=== PATIENT | male | born 1965 | race Caucasian/White ===

== ENCOUNTER 2016-11-24 11:00 | Day surgery (SDC) | payer OTHER ==
[2016-11-24] MEDS ORDERED: ceFAZolin 2 GM/50 ML 50 ML IV ONE (11:23)
[2016-11-24] MEDS ORDERED: LACTATED RINGERS 1,000 ML IV ONE ×3 (11:44→16:10)
[2016-11-24] MEDS ORDERED: SUCCINYLCHOLINE 200 MG/10 ML VIAL IVP ONE (12:44)
[2016-11-24] MEDS ORDERED: MIDAZOLAM 2 MG/2 ML VIAL IVP ONE (12:44)
[2016-11-24] MEDS ORDERED: LIDOCAINE-MPF 2% 5 ML VIAL IM ONE (12:44)
[2016-11-24] MEDS ORDERED: PROPOFOL 200 MG/20 ML VIAL IVP ONE (12:44)
[2016-11-24] MEDS ORDERED: HYDROmorphone 1 MG/ML SYRINGE IVP ONE (12:44)
[2016-11-24] MEDS ORDERED: GLYCOPYRROLATE 1 MG/5 ML VIAL IVP ONE (12:44)
[2016-11-24] MEDS ORDERED: DEXAMETHASONE 4 MG/ML VIAL IVP ONE (12:44)
[2016-11-24] MEDS ORDERED: KETOROLAC 30 MG/ML VIAL IVP ONE (12:44)
[2016-11-24] MEDS ORDERED: ROCURONIUM 50 MG/5 ML VIAL IVP ONE (12:44)
[2016-11-24] MEDS ORDERED: NEOSTIGMINE 1 MG/1 ML 10 ML MDV IVP ONE (12:44)
[2016-11-24] MEDS ORDERED: BUPIVACAINE 0.5% PF 30 ML VIAL SUBQ ONE ×2 (13:23)
[2016-11-24] MEDS: HYDROmorphone 1 MG/ML SYRINGE ONE ×4 (14:58→15:19)
[2016-11-24] MEDS ORDERED: HYDROmorphone 1 MG/ML SYRINGE ONE (15:25)
[2016-11-24] MEDS ORDERED: ACETAMINOPHEN 1,000 MG/100 ML 100 ML IV ONE (15:33)
[2016-11-24] MEDS ORDERED: oxyCOD/ACETAMIN 5 MG/325 MG TABLET PO ONE ×2 (15:47→16:23)
== END 2016-11-24 11:01 | disposition home or self-care (01) ==
PROC: 0WUF0JZ Supplement Abdominal Wall with Synthetic Substitute, Open Approach (ICD-10-PCS; principal; 2016-11-24 12:15)
DX: K43.2 Incisional hernia without obstruction or gangrene (principal)
CPT/HCPCS: 49560; 49568; A9270; C1781; J0131; J0690; J1170; J7120

== ENCOUNTER 2016-11-26 20:36 | Observation (INO) | payer OTHER ==
[2016-11-26] MEDS ORDERED: KETOROLAC 60 MG/2 ML VIAL IM STA (21:07)
[2016-11-26] MEDS ORDERED: KETOROLAC 60 MG/2 ML VIAL ONE (21:17)
[2016-11-26] MEDS ORDERED: KETOROLAC 30 MG/ML VIAL ONE (21:52)
[2016-11-26] MEDS ORDERED: SODIUM CHLORIDE FLUSH 0.9% 10 ML SYRINGE IVP PRN (22:48)
[2016-11-26] MEDS ORDERED: ONDANSETRON 4 MG/2 ML VIAL IVP PRN (22:48)
[2016-11-27] MEDS: NS W/20 MEQ KCL 1,000 ML IV SCH ×3 (00:28→16:46)
[2016-11-27] MEDS: SODIUM CHLORIDE FLUSH 0.9% 10 ML SYRINGE IVP SCH ×3 (06:50→21:51)
[2016-11-27] MEDS: HYDROmorphone 1 MG/ML SYRINGE IVP PRN ×3 (06:50→21:50)
[2016-11-27] MEDS: PANTOPRAZOLE 40 MG VIAL IVP SCH (06:50)
[2016-11-27] MEDS ORDERED: SALINE ENEMA 133 ML BOTTLE RC SCH (08:00)
[2016-11-28] MEDS: NS W/20 MEQ KCL 1,000 ML IV SCH ×2 (00:32→09:07)
[2016-11-28] MEDS: HYDROmorphone 1 MG/ML SYRINGE IVP PRN (04:37)
[2016-11-28] MEDS: SODIUM CHLORIDE FLUSH 0.9% 10 ML SYRINGE IVP SCH (06:01)
[2016-11-28] MEDS: PANTOPRAZOLE 40 MG VIAL IVP SCH (06:01)
== END 2016-11-28 11:30 | disposition home or self-care (01) ==
DX: K91.3 Postprocedural intestinal obstruction (principal); Y83.8 Other surgical procedures as the cause of abnormal reaction of the patient, or of later complication, without mention of misadventure at the time of the procedure; Y92.234 Operating room of hospital as the place of occurrence of the external cause; G89.29 Other chronic pain; M54.9 Dorsalgia, unspecified; H54.7 Unspecified visual loss; Z87.442 Personal history of urinary calculi; Z79.899 Other long term (current) drug therapy
CPT/HCPCS: 36415; 74022; 80053; 83690; 83735; 84100; 85025; 96374; 96375; 96376; 99283; 99285; A9270; G0378; J1170

== ENCOUNTER 2016-11-28 23:55 | Inpatient (IN) | payer OTHER ==
[2016-11-29] MEDS ORDERED: ONDANSETRON ODT 4 MG TABLET TL STA (01:10)
[2016-11-29] MEDS ORDERED: ONDANSETRON ODT 4 MG TABLET ONE (01:11)
[2016-11-29] MEDS: HYDROmorphone 1 MG/ML SYRINGE IVP PRN ×4 (03:23→19:10)
[2016-11-29] MEDS: D5.45NS W/20 MEQ KCL 1,000 ML IV SCH ×3 (03:24→19:14)
[2016-11-29] MEDS: SODIUM CHLORIDE FLUSH 0.9% 10 ML SYRINGE IVP SCH ×3 (03:26→21:11)
[2016-11-29] MEDS: ONDANSETRON 4 MG/2 ML VIAL IVP PRN ×3 (03:30→19:07)
[2016-11-29] MEDS: SODIUM CHLORIDE FLUSH 0.9% 10 ML SYRINGE IVP PRN ×2 (12:45→12:48)
[2016-11-29] MEDS ORDERED: SALINE ENEMA 133 ML BOTTLE RC SCH (19:00)
[2016-11-30] MEDS: ONDANSETRON 4 MG/2 ML VIAL IVP PRN ×2 (02:21→13:30)
[2016-11-30] MEDS: D5.45NS W/20 MEQ KCL 1,000 ML IV SCH ×3 (02:31→18:20)
[2016-11-30] MEDS: SODIUM CHLORIDE FLUSH 0.9% 10 ML SYRINGE IVP SCH ×3 (05:38→21:13)
[2016-11-30] MEDS ORDERED: PROCHLORPERAZINE 10 MG/2 ML VIAL IVP PRN (07:29)
[2016-11-30] MEDS: SODIUM CHLORIDE FLUSH 0.9% 10 ML SYRINGE IVP PRN (07:35)
[2016-11-30] MEDS: ceFAZolin 1 GM in SODIUM CHLORIDE 0.9% MINIBAG 100 ML IV SCH (18:20)
[2016-12-01] MEDS: ceFAZolin 1 GM in SODIUM CHLORIDE 0.9% MINIBAG 100 ML IV SCH ×3 (01:16→16:13)
[2016-12-01] MEDS: D5.45NS W/20 MEQ KCL 1,000 ML IV SCH ×2 (02:54→10:54)
[2016-12-01] MEDS: SODIUM CHLORIDE FLUSH 0.9% 10 ML SYRINGE IVP SCH ×3 (05:37→22:28)
[2016-12-01] MEDS: SODIUM CHLORIDE FLUSH 0.9% 10 ML SYRINGE IVP PRN (06:02)
[2016-12-01] MEDS: ONDANSETRON 4 MG/2 ML VIAL IVP PRN (06:02)
[2016-12-02] MEDS: D5.45NS W/20 MEQ KCL 1,000 ML IV SCH ×2 (00:51→09:35)
[2016-12-02] MEDS: ceFAZolin 1 GM in SODIUM CHLORIDE 0.9% MINIBAG 100 ML IV SCH ×3 (00:51→17:48)
[2016-12-02] MEDS: SODIUM CHLORIDE FLUSH 0.9% 10 ML SYRINGE IVP SCH ×3 (05:02→22:21)
[2016-12-03] MEDS: ceFAZolin 1 GM in SODIUM CHLORIDE 0.9% MINIBAG 100 ML IV SCH ×2 (00:50→08:08)
[2016-12-03] MEDS: D5.45NS W/20 MEQ KCL 1,000 ML IV SCH (03:55)
[2016-12-03] MEDS: SODIUM CHLORIDE FLUSH 0.9% 10 ML SYRINGE IVP SCH ×2 (05:56→14:25)
== END 2016-12-03 14:15 | disposition home or self-care (01) | DRG 395 ==
DX: K91.3 Postprocedural intestinal obstruction (principal); Y83.8 Other surgical procedures as the cause of abnormal reaction of the patient, or of later complication, without mention of misadventure at the time of the procedure; Y92.234 Operating room of hospital as the place of occurrence of the external cause; Z48.01 Encounter for change or removal of surgical wound dressing

== ENCOUNTER 2017-08-31 13:04 | Outpatient (CLI) | payer OTHER | END 2017-08-31 13:05 | disposition home or self-care (01) | LOC: SC 13:04 | PROVIDERS: ATTEND Internal Medicine Pulmonary Disease | DX: G47.30 Sleep apnea, unspecified (principal); G47.10 Hypersomnia, unspecified; R06.83 Snoring; R51 Headache | CPT/HCPCS: 99203; 99212 ==

== ENCOUNTER 2017-12-13 14:12 | Outpatient (CLI) | payer OTHER | END 2017-12-13 14:13 | disposition home or self-care (01) | LOC: SC 14:12 | PROVIDERS: ATTEND Nurse Practitioner Family | DX: G47.33 Obstructive sleep apnea (adult) (pediatric) (principal) | CPT/HCPCS: 99212; 99214 ==

== ENCOUNTER 2019-11-20 14:48 | Emergency (ER) | payer OTHER ==
[2019-11-20] MEDS ORDERED: SULFAMETH/TRIMETH DS 800/160 MG TABLET PO STA (18:12)
[2019-11-20] MEDS ORDERED: cephALEXin 250 MG CAPSULE PO STA (18:12)
--- NOTE | 2019-11-20 18:15 | ED Physician Documentation ---
PD HPI SKIN - Stated complaint Stated Complaint: RT CALF PX / SWELLING - Chief complaint Chief Complaint: Wound - History obtained from History obtained from: Patient - History of Present Illness Timing - onset: Yesterday - Additional information Additional information: Patient comes emergency department complaining of redness, swelling, and pain of his right calf after getting a tattoo a couple of days ago. Patient states that yesterday he noticed his calf was sore, but he thought that it was just sore from getting the tattoo. However, today he noticed that it was larger and the skin was red. He also noticed that the redness and pain had traveled up behind his knee. Patient denies fevers or chills. He does not otherwise feel ill. He is not a diabetic. No history of DVT. He denies any pain or swelling prior to getting his tattoo placed. No other complaints at this time. Review of Systems Ten Systems: 10 systems reviewed and negative Constitutional: reports: Reviewed and negative Eyes: reports: Reviewed and negative Ears: reports: Reviewed and negative Nose: reports: Reviewed and negative Throat: reports: Reviewed and negative Cardiac: reports: Reviewed and negative Respiratory: reports: Reviewed and negative GI: reports: Reviewed and negative : reports: Reviewed and negative Skin: reports: Other (Erythema, pain, swelling right lower extremity) Musculoskeletal: reports: Reviewed and negative Neurologic: reports: Reviewed and negative Psychiatric: reports: Reviewed and negative Endocrine: reports: Reviewed and negative Immunocompromised: reports: Reviewed and negative PD PAST MEDICAL HISTORY - Past Medical History Past Medical History: Yes Cardiovascular: None Respiratory: None Endocrine/Autoimmune: None GI: None : Kidney stones HEENT: Chronic vision loss Psych: None Musculoskeletal: Chronic back pain Derm: None - Past Surgical History Past Surgical History: Yes General: Appendectomy, 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 - Present Medications Home Medications: Ambulatory Orders Medication Instructions Recorded Confirmed Vardenafil HCl [Levitra] 20 mg PO PRN PRN 11/29/16 11/29/16 Cephalexin [Keflex] 500 mg PO TID #30 capsule 12/03/16 Cephalexin [Keflex] 500 mg PO QID 7 Days #28 capsule 11/20/19 Sulfamethox/Trimeth 800/160 1 each PO BID #14 tablet 11/20/19 [Bactrim Ds 800/160] - Allergies Allergies/Adverse Reactions: Allergies Allergy/AdvReac Type Severity Reaction Status Date / Time No Known Drug Allergies Allergy Verified 11/29/16 00:03 - Social History Does the pt smoke?: No Smoking Status: Never smoker Does the pt drink ETOH?: Yes Does the pt have substance abuse?: No - Immunizations Immunizations are current?: Yes - POLST Patient has POLST: No PD ED PE NORMAL - Vitals Vital signs reviewed: Yes - General General: Alert and oriented X 3, No acute distress - HEENT HEENT: PERRL - Neck Neck: Supple, no meningeal sign - Respiratory Respiratory: No respiratory distress - Derm Derm: Warm and dry, Other (Patient has erythema and tenderness of his posterior calf cough surrounding a fresh appearing tattoo. Erythema extends up to the popliteal region. No induration is noted. No fluctuance. No drainage or wounds. No cords.) - Extremities Extremities: No deformity, Other (See description of skin changes under "Derm" exam. Patient has tenderness overThe soft tissues of his right calf extending to the popliteal area.) - Neuro Neuro: Alert and oriented X 3 - Psych Psych: Normal mood, Normal affect Results - Vitals Vitals: Vital Signs - 24 hr 11/20/19 11/20/19 15:25 18:20 Temperature 37 C 37 C Heart Rate 81 75 Respiratory 18 12 Rate Blood Pressure 145/92 H 145/83 H O2 Saturation 97 98 Oxygen O2 Source Room air PD MEDICAL DECISION MAKING - ED course Complexity details: reviewed old records, considered differential, d/w patient ED course: Patient was started on Keflex and Bactrim in the emergency department for what appeared to be a cellulitis. I felt it was unlikely that the patient's symptoms were secondary to DVT and I also did not find evidence of an abscess at this time. We have discussed home management of the symptoms and the need to take the antibiotics directed. We have also discussed the usual indications for return. Departure - Departure Disposition: 01 Home, Self Care Clinical Impression: Cellulitis Qualifiers: Site of cellulitis: extremity Site of cellulitis of extremity: lower extremity Laterality: right Qualified Code(s): L03.115 - Cellulitis of right lower limb Condition: Fair Instructions: ED Infec Skin Cellulitis Prescriptions: Cephalexin [Keflex] 500 mg PO QID 7 Days #28 capsule Sulfamethox/Trimeth 800/160 [Bactrim Ds 800/160] 1 each PO BID #14 tablet Comments: Please take both sets of antibiotics, as directed.If you still are noticing that the symptoms are worsening after couple of days, you will need to come back and be reevaluated.You may also use ice and elevation to help the swelling and pain. Discharge Date/Time: 11/20/19 18:21
[2019-11-20 18:21] VITALS: BP 145/83
== END 2019-11-20 18:21 | disposition home or self-care (01) ==
LOC: ED 14:48
DX: L03.115 Cellulitis of right lower limb (principal)
CPT/HCPCS: 99282; 99284; A9270

== ENCOUNTER 2020-01-05 16:11 | Emergency (ER) | payer OTHER ==
--- NOTE | 2020-01-05 16:30 | ED Physician Documentation ---
PD HPI LOWER EXT INJURY - Stated complaint Stated Complaint: RT LEG PX - Chief complaint Chief Complaint: Ext Problem - History obtained from History obtained from: Patient - History of Present Illness PD HPI LOW EXT INJURY LOCATION: Right, Calf (lateral aspect) Type of injury: Other (no noted particular injury. Started with lateral right calf pain that has increased and is now also hurting right popliteal area. No foot swelling. No noted weakness/numbness. No back pain.). No: Fall, Twist Timing - onset: How many weeks ago (1) Timing - duration: Weeks (1) Timing - details: Gradual onset, Still present Worsened by: Moving (standing and walking hurts more), Palpating Associated symptoms: No: Weakness, Numbness, Swelling Contributing factors: Other ([facility]- timeframe, and improved with PO abx. Did not have pain there after and without redness/swelling there this week.). No: Anticoagulated, Prior ortho surgery Review of Systems Constitutional: denies: Fever, Chills, Myalgias Nose: denies: Rhinorrhea / runny nose, Congestion Throat: denies: Sore throat Cardiac: denies: Chest pain / pressure Respiratory: denies: Dyspnea, Cough Skin: denies: Rash, Lesions Neurologic: denies: Focal weakness, Numbness PD PAST MEDICAL HISTORY - Past Medical History Cardiovascular: None Respiratory: None Endocrine/Autoimmune: None GI: None : Kidney stones HEENT: Chronic vision loss Psych: None Musculoskeletal: Chronic back pain Derm: None - Past Surgical History Past Surgical History: Yes General: Appendectomy, Bowel surgery /CONTRACT NEGOTIATION SPECIALIST: Other - Present Medications Home Medications: Ambulatory Orders Medication Instructions Recorded Confirmed Vardenafil HCl [Levitra] 20 mg PO PRN PRN 11/29/16 11/29/16 Cephalexin [Keflex] 500 mg PO TID #30 capsule 12/03/16 Cephalexin [Keflex] 500 mg PO QID 7 Days #28 capsule 11/20/19 Sulfamethox/Trimeth 800/160 1 each PO BID #14 tablet 11/20/19 [Bactrim Ds 800/160] Hydrocodone/Acetaminophen [[place] 1 each PO Q6H PRN #15 tablet 01/05/20 5-325 Tablet] Naproxen 375 mg PO BID #20 tablet 04/10/20 Tizanidine HCl 4 mg PO TID PRN #25 capsule 01/05/20 - Allergies Allergies/Adverse Reactions: Allergies Allergy/AdvReac Type Severity Reaction Status Date / Time No Known Drug Allergies Allergy Verified 01/05/20 16:18 - Social History Does the pt smoke?: No Smoking Status: Never smoker Does the pt drink ETOH?: Yes Does the pt have substance abuse?: No - Immunizations Immunizations are current?: Yes - POLST Patient has POLST: No PD ED PE NORMAL - Vitals Vital signs reviewed: Yes - General General: Alert and oriented X 3, No acute distress, Well developed/nourished - Cardiac Cardiac: RRR, No murmur - Respiratory Respiratory: Clear bilaterally - Abdomen Abdomen: Soft, Non tender - Back Back: No spinal TTP - Derm Derm: Normal color, Warm and dry, No rash - Extremities Extremities: No edema, Other (He has tenderness over the lateral aspect of the right mid calf to the proximal calf and some in the popliteal area. There is no obvious rash redness or swelling. Sensation in the foot and toes is normal as is movement. The medial aspect of the calf is not tender.) Results - Vitals Vitals: Vital Signs - 24 hr 01/05/20 01/05/20 01/05/20 16:18 16:20 18:20 Temperature 36.7 C 36.6 C 36.6 C Heart Rate 77 72 70 Respiratory 17 16 16 Rate Blood Pressure 159/83 H 120/65 122/65 O2 Saturation 99 100 100 Oxygen O2 Source Room air - Labs Labs: Laboratory Tests 01/05/20 01/05/20 17:48 17:48 WBC 6.4 RBC 5.49 Hgb 16.0 Hct 47.0 MCV 85.6 MCH 29.1 MCHC 34.0 RDW 13.3 Plt Count 193 MPV 10.1 Neut # (Auto) 3.4 Lymph # (Auto) 2.4 [place] # (Auto) 0.5 Eos # (Auto) 0.1 Baso # (Auto) 0.0 Absolute Nucleated RBC 0.00 Nucleated RBC % 0.0 Sodium 137 Potassium 3.7 Chloride 102 Carbon Dioxide 28 Anion Gap 7.0 BUN 19 Creatinine 0.9 Estimated GFR (MDRD) 89 Glucose 97 Calcium 9.2 Total Creatine Kinase 119 C-Reactive Protein < 1.0 - Rads (name of study) right leg duplex Radiology: Prelim report reviewed (no DVT), See rad report PD MEDICAL DECISION MAKING - ED course Complexity details: reviewed results, considered differential (He has pain in the lateral calf. There is no injury to it. It does not feel tight. It is not exertional. It does not seem compartment like. There is no signs of skin lesions. We can check an ultrasound for DVT. He had had cellulitis over at tattoo there a month and a half ago but that healed well. No signs of recurrent infection. Can check CK and CRP for possibility of a deeper muscle infection though would be unlikely 5 or 6 weeks later.), d/w patient Departure - Departure Disposition: 01 Home, Self Care Clinical Impression: Right calf pain Clinical Impression: (Ruled Out): Deep vein thrombosis Condition: Stable Record reviewed to determine appropriate education?: Yes Instructions: ED Muscle Pain Leg Cramps Follow-Up: Matt Gutierres MD [Primary Care Provider] - Prescriptions: Hydrocodone/Acetaminophen [[place] 5-325 Tablet] 1 each PO Q6H PRN #15 tablet PRN Reason: Pain Naproxen 375 mg PO BID #20 tablet Tizanidine HCl 4 mg PO TID PRN #25 capsule PRN Reason: Spasms Comments: Your ultrasound did not show any signs of blood clots. Your blood test did not suggest any sign of muscle breakdown or localized infection or inflammatory process per se. Presume a muscle strain or such. Use some muscle relaxants and anti-inflammatories. Heat and gentle stretching of the area. Add Tylenol if needed. Recheck if not improved over the next several days to a week. Recheck sooner if other symptoms develop such as rash or back pain, numbness or weakness or other concerns.
[2020-01-05] MEDS ORDERED: ACETAMINOPHEN 325 MG TABLET PO STA (17:05)
[2020-01-05 17:55] LABS: BASOPHILS % (AUTO) 0.3 %; EOSINOPHILS # (AUTO) 0.1 10^3/uL (0.0-0.7); EOSINOPHILS % (AUTO) 1.6 %; LYMPHOCYTES # (AUTO) 2.4 10^3/uL (1.5-3.5); LYMPHOCYTES % (AUTO) 37.1 %; MEAN CORPUSCULAR HEMOGLOBIN 29.1 pg (27.0-31.0); MEAN CORPUSCULAR VOLUME 85.6 fL (80.0-94.0); MEAN PLATELET VOLUME 10.1 fL (7.4-11.4); MONOCYTES # (AUTO) 0.5 10^3/uL (0.0-1.0); MONOCYTES % (AUTO) 7.7 %; NEUTROPHILS # (AUTO) 3.4 10^3/uL (1.5-6.6); PLT - PLATELET COUNT 193 10^3/uL (130-450); RED BLOOD COUNT 5.49 10^6/uL (4.70-6.10); RED CELL DISTRIBUTION WIDTH 13.3 % (12.0-15.0); WHITE BLOOD COUNT 6.4 x10^3/uL (4.8-10.8)
[2020-01-05 18:17] LABS: BUN - BLOOD UREA NITROGEN 19 mg/dL (6-20); CALCIUM 9.2 mg/dL (8.5-10.3); CARBON DIOXIDE - CO2 28 mmol/L (21-32); CHLORIDE 102 mmol/L (101-111); CK- CREATINE KINASE 119 IU/L (22-269); CREATININE 0.9 mg/dL (0.6-1.2); GLUCOSE 97 mg/dL (70-100); SODIUM 137 mmol/L (135-145)
[2020-01-05 18:23] LABS: CRP - C-REACTIVE PROTEIN < 1.0 mg/dL (0-1.0)
--- NOTE | 2020-01-05 18:52 | Ultrasound Report ---
Reason: right calf pain and some swelling; no injury Procedure Date: 01/05/2020 Accession Number: [id number] / [id number] Procedure: US - Duplex Ext Veins Right CPT Code: Final Report FULL RESULT: EXAM: RIGHT LOWER EXTREMITY VENOUS ULTRASOUND EXAM DATE: 01/05/2020 06:35 PM. CLINICAL HISTORY: Right calf pain and some swelling; no injury. COMPARISON: None. TECHNIQUE: Real-time sonographic vascular imaging was performed by the md ophthalmologist through the lower extremity utilizing both color-flow and Doppler spectral analysis. Multiple outside energy sales representatives static images were saved for review. FINDINGS: Common Femoral Vein (CFV): Normal. CFV-GSV Junction: Normal. Profunda Femoral Vein (PFV): Normal. Femoral Vein (FV) Prox: Normal. Femoral Vein (FV) Mid: Normal. Femoral Vein (FV) Dist: Normal. Popliteal Vein: Normal. Posterior Tibial Veins: Normal. Peroneal Veins: Normal. Contralateral Side CFV: Normal. Other: None. IMPRESSION: No evidence for deep venous thrombosis. RADIA
[2020-01-05 19:10] VITALS: BP 125/65
== END 2020-01-05 19:10 | disposition home or self-care (01) ==
LOC: ED 16:11
DX: M79.661 Pain in right lower leg (principal)
CPT/HCPCS: 36415; 80048; 82550; 85025; 86140; 93971; 99284; A9270

== ENCOUNTER 2021-04-24 16:49 | Outpatient (CLI) | payer BC, OTHER | END 2021-04-24 16:50 | disposition home or self-care (01) | LOC: COV 16:49 | PROVIDERS: ATTEND Surgery | DX: Z01.812 Encounter for preprocedural laboratory examination (principal); K43.2 Incisional hernia without obstruction or gangrene; Z20.822 Contact with and (suspected) exposure to COVID-19 ==

== ENCOUNTER 2021-04-28 08:48 | Day surgery (SDC) | payer OTHER ==
[~2021-04-28 08:48] MED LIST: ceFAZolin 2 GM/50 ML 2 GM/50 ML BAG IV ONE
[2021-04-28] MEDS ORDERED: ONDANSETRON 4 MG/2 ML VIAL IVP ONE (08:49)
[2021-04-28] MEDS ORDERED: PROPOFOL 200 MG/20 ML VIAL IVP ONE (08:49)
[2021-04-28] MEDS ORDERED: KETOROLAC 30 MG/ML VIAL IVP ONE (08:49)
[2021-04-28] MEDS ORDERED: LIDOCAINE-MPF 2% 5 ML VIAL TD ONE (08:49)
[2021-04-28] MEDS ORDERED: fentaNYL 100 MCG/2 ML VIAL IVP ONE (08:49)
[2021-04-28] MEDS ORDERED: GLYCOPYRROLATE 1 MG/5 ML VIAL IVP ONE (08:49)
[2021-04-28] MEDS ORDERED: ROCURONIUM 50 MG/5 ML VIAL IVP ONE (08:49)
[2021-04-28] MEDS ORDERED: NEOSTIGMINE 1 MG/1 ML 10 ML MDV IVP ONE (08:49)
[2021-04-28] MEDS ORDERED: DEXAMETHASONE 4 MG/ML VIAL IVP ONE (08:49)
[2021-04-28] MEDS ORDERED: MIDAZOLAM 2 MG/2 ML VIAL IVP ONE (08:49)
[2021-04-28] MEDS ORDERED: LACTATED RINGERS 1,000 ML IV ONE ×2 (09:43→12:32)
[2021-04-28] MEDS ORDERED: ATROPINE ABBOJECT 1 MG/10 ML SYRINGE IVP PRN (10:03)
[2021-04-28] MEDS ORDERED: fentaNYL 100 MCG/2 ML VIAL IVP PRN (10:03)
[2021-04-28] MEDS ORDERED: ePHEDrine 50 MG/ML VIAL IVP PRN (10:03)
[2021-04-28] MEDS ORDERED: HYDROmorphone 0.5 MG/0.5 ML SYRINGE IVP PRN ×2 (10:03→12:35)
[2021-04-28] MEDS ORDERED: NALOXONE 0.4 MG/ML VIAL IVP PRN (10:03)
[2021-04-28] MEDS ORDERED: METOCLOPRAMIDE 10 MG/2 ML VIAL IVP PRN (10:03)
[2021-04-28] MEDS ORDERED: MORPHINE 2 MG/ML CARPUJECT IVP PRN (10:03)
[2021-04-28] MEDS ORDERED: ONDANSETRON 4 MG/2 ML VIAL IVP PRN ×2 (10:03→12:35)
--- NOTE | 2021-04-28 10:03 | ANESTHESIA ---
Pre-Anesthesia VS, & Labs - Diagnosis recurrent incisional hernia - Procedure recurrent incisional hernia repair Vital Signs: Temp Pulse Resp BP Pulse Ox 36 C L 66 20 121/90 H 100 04/28/21 09:00 04/28/21 09:00 04/28/21 09:00 04/28/21 09:00 04/28/21 09:00 Height: 5 ft 10 in Weight (kg): 109 kg Body Mass Index: 34.4 BMI Classification: Obese - NPO >8 hours Last Fluid Intake: sips 0800 h20 Home Medications and Allergies Home Medications: Ambulatory Orders No Known Home Medications 04/21/21 No Known Home Medications 04/21/21 Allergies/Adverse Reactions: Allergies Allergy/AdvReac Type Severity Reaction Status Date / Time No Known Drug Allergies Allergy Verified 01/05/20 16:18 Anes History & Medical History - Anesthetic History Anesthesia Complications: reports: No previous complications Family history of Anesthesia Complications: Denies Family history of Malignant Hyperthermia: Denies - Medical History Cardiovascular: reports: None Pulmonary: reports: None Gastrointestinal: reports: None Urinary: reports: None Musculoskeletal: reports: None Endocrine/Autoimmune: reports: None Blood Disorders: reports: None Skin: reports: Eczema Smoking Status: Never smoker - Surgical History General: reports: Appendectomy, Bowel surgery Gynecologic: Exam General: Alert, Oriented x3, Cooperative Dental: WNL Mouth Openin Fingerbreadth Neck Mobility: Normal Mallampati classification: II Thyromental Distance: 4-6 cm Respiratory: Lungs clear, Normal breath sounds, No respiratory distress Cardiovascular: Regular rate Neurological: Normal speech Mental/Cognitive Status: Alert/Oriented X3, Normal for patient Cognitive Status: Within normal limits Plan Anesthesia Type: General Consent for Procedure(s) Verified and Reviewed: Yes Code Status: Attempt Resuscitation ASA classification: 1-Healthy patient Is this case an emergency?: No
[2021-04-28] MEDS ORDERED: BUPIVACAINE 0.5% PF 30 ML VIAL ONE (10:04)
[2021-04-28] MEDS ORDERED: BUPIVACAINE 0.5% PF 30 ML VIAL INFIL ONE (10:11)
[2021-04-28] MEDS ORDERED: LACTATED RINGERS 1,000 ML IV SCH (11:00)
--- NOTE | 2021-04-28 12:27 | OPERATIVE REPORT ---
Operative Report - General Procedure Date: 04/28/21 Planned Procedure: Recurrent incisional herniorrhaphy Pre-Op Diagnosis: Recurrent incisional hernia Procedure Performed: Recurrent incisional herniorrhaphy with mesh Explantation of old mesh Post Op Diagnosis: Recurrent incisional hernia - Procedure Note Primary Surgeon: Juan Penny MD Anesthesia Provider: Jennifer Castro CRNA Anesthesia Technique: General ET tube, Local (30 mL of half percent Marcaine) IV Fluids (mL): 1,000 Estimated Blood Loss (mL): 10 Drain/Tube Type: Other (None.) Indications: Same as above. Findings: In the left upper aspect of the wound the mesh had folded back onto itself creating the recurrent hernia. Complications: None. - Other Other Information/Narrative: After verbal and written informed consent was obtained detailing the operation, the alternatives the operation including no operation, risks of infection, bleeding requiring transfusion with its risks, nerve injury, and and after I met with the patient confirming the surgery and the site of surgery, the patient was brought to the operative suite and placed supine on the operating table. Great care was taken to avoid pressure points to prevent pressure necrosis or nerve injury. Monitoring devices were applied along with TEDs and pneumatic compression stockings (to prevent DVT). The patient received preoperative antibiotics for surgical prophylaxis. (Anesthesiologist) sedated and anesthetized the patient for the entire procedure. The patient was prepped and draped in the usual sterile manner. With the patient draped my initials were clearly visible. A "time in" then confirmed that the patient was identified with 3 identifiers (name, date, and medical record number), the history and physical was updated and in the chart, the signed consent confirming the procedure was in the chart, the patient was in the correct position, the aforementioned prophylactic measures were in place or given, we had the correct personnel and equipment to complete the procedure and that anesthesia and the surgical team were given an opportunity to express any concerns. With the agreement of everyone in the room we proceeded with the operation. A midline skin incision was made tracing the previous incision and proceeding approximately 2 cm above this incision. Dissection down to the hernia sac was completed using Bovie electrocautery. The hernia sac was entered using Metzenbaum scissors without incident. This was dissected back to the fascial defect. What was apparent was that three fourths of the mesh was well incorporated however between the 12 and 3 o'clock position (left upper aspect on the patient right upper aspect as you are looking at him) the mesh had folded back onto itself creating the hernia defect. The mesh was densely adherent and could not be unfolded. As such, I decided to remove the old mesh and replace it. The removal of the mesh was done using a combination of Bovie electrocautery, blunt dissection, and Metzenbaum scissors. The old mesh was excised in its entirety and I decided not to send it to pathology for evaluation. A Ventrio ST hernia patch from [employer] (reference #[id number], lot # [id number], use by date 2022-07-24) was obtained and placed into the abdomen and sewn circumferentially in place to the fascia using "U" sutures of 0 PDS. There was significant overlap of the mesh with the hernia defect. The sutures were placed at the 12, 3, 6, and 9:00 positions. Sutures were then placed between these and digital examination revealed that there was no area between the sutures where I felt that omentum or abdominal contents could come through. The subcutaneous tissues were approximated in 2 layers using 0 PDS for the deeper layer in interrupted fashion and 3-0 Vicryl in a running fashion more superficially. The skin was closed using skin love and some Dermabond. At this point a timeout was performed that confirmed that all counts were correct x2, the procedure that was performed, the blood loss, the IV fluids administered, the patient's condition, and any concerns of the operating team had. Having tolerated the procedure well, the patient was taken recovery room in good and stable condition. The plan is for outpatient discharge when the patient is adequately recovered. This document was created in part using voice recognition technology. Because of the inherent limitations of the system, occasional same sounding word substitutions and grammatical errors do occur and persist despite proofreading. Please read this document for content.
[2021-04-28] MEDS ORDERED: HYDROcod/ACETAM 5/325 MG TABLET PO PRN (12:35)
[2021-04-28] MEDS ORDERED: fentaNYL 100 MCG/2 ML VIAL ONE (12:59)
[2021-04-28] MEDS ORDERED: HYDROcod/ACETAM 5/325 MG TABLET ONE (13:31)
--- NOTE | 2021-04-28 14:14 | ANESTHESIA POST OP EVALUATION ---
Anesthesia Post Eval - Post Anesthesia Eval Vitals: Last Vital Signs Temp 36.8 C 04/28/21 13:55 Pulse 59 L 04/28/21 13:55 Resp 18 04/28/21 13:55 BP 100/58 L 04/28/21 13:55 Pulse Ox 95 04/28/21 13:55 CV Function Including HR & BP: Stable Pain Control: Satisfactory Nausea & Vomiting: Negative Mental Status: Baseline Respiratory Status: Airway Patent Hydration Status: Satisfactory Anesthesia Complications: None
[2021-04-28 15:20] VITALS: BP 112/70
== END 2021-04-28 08:49 | disposition home or self-care (01) ==
LOC: SDS 08:48
PROVIDERS: ATTEND Surgery
PROC: 0WUF0JZ Supplement Abdominal Wall with Synthetic Substitute, Open Approach (ICD-10-PCS; 2021-04-28)
PROC: 0WQF0ZZ Repair Abdominal Wall, Open Approach (ICD-10-PCS; principal; 2021-04-28 10:15)
DX: K43.2 Incisional hernia without obstruction or gangrene (principal); E66.9 Obesity, unspecified; Z68.34 Body mass index [BMI] 34.0-34.9, adult
CPT/HCPCS: 49565; 49568; A9270; C1781; J0690; J7120